=== PATIENT | female | born 1995 | race African-American/Black ===

== ENCOUNTER 2020-12-06 14:18 | Inpatient (IN) | payer MEDICARE, MEDICAID ==
[~2020-12-06] VITALS: Ht 175.3 cm; Wt 117.9 kg
[2020-12-06] MEDS ORDERED: MISOPROSTOL 100MCG TABLET VG PRN (23:45)
[2020-12-06] MEDS ORDERED: LIDOCAINE HCL 1% 20ML VIAL (Pyxis) INJ INFIL SCH (23:45)
[2020-12-06] MEDS ORDERED: BUTORPHANOL TARTRATE 2 MG/ML VIAL IV PRN (23:45)
[2020-12-06] MEDS ORDERED: METHYLERGONOVINE MALEATE 0.2 MG/ML IM PRN (23:45)
[2020-12-06] MEDS ORDERED: NALOXONE HCL 0.4 MG/ML 1ML VIAL IM PRN (23:45)
[2020-12-06] MEDS ORDERED: DEXT 5%/LR + PITOCIN 20UNITS/L 1,000 ML IV SCH (23:45)
[2020-12-07] MEDS: LACTATED RINGERS 1,000 ML IV SCH ×3 (00:54→08:43)
[2020-12-07 01:00] LABS: BASOPHILS % 0.2 % (0.0-2.0); EOSINOPHILS % 0.4 % (0.0-5.0); HEMATOCRIT. 33.9 % (36.0-48.0); HEMOGLOBIN. 11.3 g/dL (12.0-16.0); LYMPHOCYTES % 36.7 % (20.0-50.0); MEAN CORPUSCULAR HEMOGLOBIN 28.3 pg (28.0-32.0); MEAN CORPUSCULAR VOLUME 84.7 fL (81.0-99.0); MEAN PLATELET VOLUME 8.4 fl (7.4-10.4); MONOCYTES % 7.3 % (2.0-8.0); NEUTROPHILS % 55.4 % (40.0-76.0); PLATELET 287 x1000/uL (130-400); RED CELL DISTRIBUTION WIDTH 13.8 % (11.6-14.6)
[2020-12-07] MEDS ORDERED: PENICILLIN G POTASSIUM 5 MMU in DEXT 5% WATER 100 ML IV SCH (01:00)
[2020-12-07 01:28] LABS: HEPATITIS B SURFACE ANTIGEN NEGATIVE
[2020-12-07 01:56] LABS: INR 0.9; PARTIAL THROMBOPLASTIN TIME 26.3 sec (23.4-31.0)
[2020-12-07 01:59] LABS: *AMPHETAMINES SCREEN URINE NEGATIVE (NEGATIVE); CANNABINOID URINE SCREEN NEGATIVE (NEGATIVE); PHENCYCLIDINE URINE SCREEN NEGATIVE (NEGATIVE)
[2020-12-07 02:00] LABS: *BARBITURATES SCREEN URINE NEGATIVE (NEGATIVE); *BENZODIAZEPINES SCREEN URINE NEGATIVE (NEGATIVE); *COCAINE SCREEN URINE NEGATIVE (NEGATIVE); METHADONE URINE SCREEN NEGATIVE (NEGATIVE); OPIATES URINE SCREEN NEGATIVE (NEGATIVE)
[2020-12-07] MEDS ORDERED: ROPIVACAINE HCL/PF EPIDURAL 200 ML EPI SCH (07:30)
[2020-12-07] MEDS ORDERED: ROPIVACAINE HCL/PF EPIDURAL 200 ML EPI ONE (07:41)
[2020-12-07] MEDS ORDERED: FENTANYL CITRATE/PF 50MCG/ML 2ML VIAL ONE ×3 (07:41→15:25)
[2020-12-07] MEDS ORDERED: LIDOCAINE HCL 2%/EPINEPHRINE 1:100,000 20 ML VIAL INFIL ONE (07:46)
[2020-12-07] MEDS ORDERED: METHYLERGONOVINE MALEATE 0.2 MG/ML ONE (07:53)
[2020-12-07] MEDS: PENICILLIN G POTASSIUM 2.5 MMU in DEXTROSE 5% WATER 50 ML IV SCH ×2 (08:42→13:28)
[2020-12-07] MEDS ORDERED: MORPHINE SULFATE/PF 1MG/ML 10ML AMP ONE (15:25)
[2020-12-07] MEDS ORDERED: DIPHENHYDRAMINE 25MG CAPSULE PO PRN (15:30)
[2020-12-07] MEDS ORDERED: BISACODYL 10MG SUPP PR PRN (15:30)
[2020-12-07] MEDS ORDERED: LANOLIN OINT 7GM TUBE TOP PRN (15:30)
[2020-12-07] MEDS ORDERED: HEMORRHOIDAL SUPP PR PRN (15:30)
[2020-12-07] MEDS ORDERED: DEXT 5%/LR + PITOCIN 20UNITS/L 1,000 ML IV SCH (15:30)
[2020-12-07] MEDS ORDERED: ONDANSETRON HCL 4MG/2ML INJ IV PRN (15:30)
[2020-12-07] MEDS ORDERED: IBUPROFEN 400MG TABLET PO PRN (15:30)
[2020-12-07] MEDS ORDERED: ONDANSETRON HCL 4MG/2ML INJ ONE (15:31)
[2020-12-07] MEDS ORDERED: METOCLOPRAMIDE HCL 10MG/2ML VIAL ONE (15:32)
[2020-12-07] MEDS ORDERED: OXYTOCIN 10 UNITS/ML 1ML ONE (15:41)
[2020-12-07] MEDS ORDERED: CEFAZOLIN SODIUM 1000MG/VIAL ONE (15:41)
[2020-12-07] MEDS ORDERED: NALOXONE HCL 0.4MG/ML VIAL IV PRN (15:45)
[2020-12-07] MEDS ORDERED: EPHEDRINE SULFATE 50MG/ML VIAL ONE (16:08)
[2020-12-07] MEDS ORDERED: DIPHENHYDRAMINE 50MG/ML VIAL ONE (16:10)
[2020-12-07 16:47] LABS: BG BASE EXCESS -9.6 mmol/L (-2.0-2.0); BG FRACTION INSPIRED OXYGEN 21; BG HCO3 ACT 19.6 mmol/L (22.0-26.0); BG PH 7.162 (7.350-7.450); BG PO2 < 30.3 mmHg (75.0-100.0); BG SAMPLE SITE Other
[2020-12-07] MEDS ORDERED: BUTORPHANOL TARTRATE 2 MG/ML VIAL IV PRN ×2 (17:15→19:30)
[2020-12-07] MEDS ORDERED: DIPHENHYDRAMINE 50MG/ML VIAL IV PRN (17:15)
[2020-12-07] MEDS ORDERED: NALOXONE HCL 0.4 MG/ML 1ML VIAL IV PRN (17:15)
[2020-12-07] MEDS: DOCUSATE SODIUM 100MG CAPSULE PO SCH (21:00)
[2020-12-07] MEDS: MAGNESIUM/ALUMINUM HYDROXIDE/SIMETHICONE 30ML UDC PO SCH (21:00)
[2020-12-07 21:30] VITALS: BP 111/73
[2020-12-07 22:00] VITALS: BP 117/73
[2020-12-07 22:30] VITALS: BP 105/70
[2020-12-08] MEDS: KETOROLAC 30MG/ML VIAL IV SCH ×2 (01:36→09:06)
[2020-12-08 03:04] VITALS: BP 106/70
[2020-12-08 08:00] VITALS: BP 106/67
[2020-12-08 08:18] LABS: BASOPHILS % 0.1 % (0.0-2.0); HEMATOCRIT. 24.1 % (36.0-48.0); HEMOGLOBIN. 7.9 g/dL (12.0-16.0); MEAN CORPUSCULAR HEMOGLOBIN 28.3 pg (28.0-32.0); MEAN CORPUSCULAR VOLUME 86.9 fL (81.0-99.0); MEAN PLATELET VOLUME 7.9 fl (7.4-10.4); MONOCYTES % 7.2 % (2.0-8.0); NEUTROPHILS % 78.7 % (40.0-76.0); PLATELET 237 x1000/uL (130-400); RED BLOOD CELL COUNT 2.77 mill/uL (4.2-5.4); RED CELL DISTRIBUTION WIDTH 14.1 % (11.6-14.6)
[2020-12-08] MEDS: SIMETHICONE 80MG TABLET CHEW PO SCH ×3 (09:06→21:00)
[2020-12-08] MEDS: PRENATAL VIT/FE FUMARATE/FA TABLET PO SCH (09:06)
[2020-12-08] MEDS: FERROUS SULFATE 325MG TABLET PO SCH ×3 (09:07→13:12)
[2020-12-08] MEDS: IBUPROFEN 800MG TABLET PO PRN (13:11)
[2020-12-08] MEDS: MAGNESIUM/ALUMINUM HYDROXIDE/SIMETHICONE 30ML UDC PO SCH ×2 (13:11→21:00)
[2020-12-08 14:01] VITALS: BP 112/62
[2020-12-08 16:34] VITALS: BP 119/60
[2020-12-08] MEDS: DOCUSATE SODIUM 100MG CAPSULE PO SCH (21:00)
[2020-12-08 22:00] VITALS: BP 113/65
[2020-12-09 05:30] VITALS: BP 110/69
[2020-12-09] MEDS: MAGNESIUM/ALUMINUM HYDROXIDE/SIMETHICONE 30ML UDC PO SCH ×4 (07:30→22:10)
[2020-12-09 08:00] VITALS: BP 118/60
[2020-12-09] MEDS: PRENATAL VIT/FE FUMARATE/FA TABLET PO SCH (08:03)
[2020-12-09] MEDS: SIMETHICONE 80MG TABLET CHEW PO SCH ×3 (08:03→22:11)
[2020-12-09] MEDS: FERROUS SULFATE 325MG TABLET PO SCH ×2 (08:03→18:30)
[2020-12-09] MEDS: IBUPROFEN 800MG TABLET PO PRN ×2 (08:04→22:13)
[2020-12-09 10:53] LABS: BASOPHILS % 0.3 % (0.0-2.0); EOSINOPHILS % 0.1 % (0.0-5.0); HEMATOCRIT. 24.9 % (36.0-48.0); HEMOGLOBIN. 8.4 g/dL (12.0-16.0); LYMPHOCYTES % 16.6 % (20.0-50.0); MEAN CORPUSCULAR HEMOGLOBIN 28.9 pg (28.0-32.0); MEAN CORPUSCULAR VOLUME 85.8 fL (81.0-99.0); MEAN PLATELET VOLUME 8.4 fl (7.4-10.4); MONOCYTES % 4.7 % (2.0-8.0); NEUTROPHILS % 78.3 % (40.0-76.0); PLATELET 286 x1000/uL (130-400); RED CELL DISTRIBUTION WIDTH 14.3 % (11.6-14.6)
[2020-12-09] MEDS ORDERED: MEASLES,MUMPS&RUBELLA VACCINE 1 VIAL SUBCUT ONE (14:45)
[2020-12-09] MEDS ORDERED: TETANUS, DIPHTHERIA, PERTUSSIS VAC/PF 0.5ML (>10YR OLD) IM ONE (14:45)
[2020-12-09 15:50] VITALS: BP 100/60
[2020-12-09 22:00] VITALS: BP 115/63
[2020-12-09] MEDS: DOCUSATE SODIUM 100MG CAPSULE PO SCH (22:12)
[2020-12-10] MEDS: ACETAMINOPHEN WITH CODEINE 300/30MG TABLET PO PRN ×2 (00:53→08:39)
[2020-12-10 07:48] VITALS: BP 112/73
[2020-12-10] MEDS: SIMETHICONE 80MG TABLET CHEW PO SCH (08:06)
[2020-12-10] MEDS: FERROUS SULFATE 325MG TABLET PO SCH (08:07)
[2020-12-10] MEDS: PRENATAL VIT/FE FUMARATE/FA TABLET PO SCH (08:07)
== END 2020-12-10 10:35 | disposition home or self-care (01) | DRG 788 ==
LOC: 8 EST LDRP 14:18 → OBSVTOIN 14:18 → INTOOBSV 14:18 → 8EST 12-07 21:02
PROVIDERS: ADMIT Obstetrics & Gynecology; ATTEND Obstetrics & Gynecology
PROC: 10D00Z1 Extraction of Products of Conception, Low, Open Approach (ICD-10-PCS; principal; 2020-12-08)
DX: O32.4XX0 Maternal care for high head at term, not applicable or unspecified (principal); O32.1XX0 Maternal care for breech presentation, not applicable or unspecified; O36.63X0 Maternal care for excessive fetal growth, third trimester, not applicable or unspecified; O76 Abnormality in fetal heart rate and rhythm complicating labor and delivery; O99.02 Anemia complicating childbirth; D64.9 Anemia, unspecified; Z3A.40 40 weeks gestation of pregnancy; Z37.0 Single live birth; Z20.822 Contact with and (suspected) exposure to COVID-19
CPT/HCPCS: 36415; 36600; 76805; 76818; 80305; 82805; 85025; 86592; 86703; 86762; 86850; 86900; 87340; 87426; 88307; 90707; 90715; 99281; G0378; J0595; J0690; J1200; J1885; J2210; J2274; J2405; J2540; J2590; J2765; J2795; J3010; J3490; J7060; J7120